=== PATIENT | female | born 1950 | race Asian ===

== ENCOUNTER 2017-06-22 09:41 | Outpatient (CLI) | payer OTHER | END 2017-06-22 21:20 | disposition home or self-care (01) | LOC: RAD 09:41 | DX: M81.0 Age-related osteoporosis without current pathological fracture (principal) ==

== ENCOUNTER 2021-05-29 10:45 | Emergency (ER) | payer OTHER ==
[~2021-05-29] VITALS: Ht 167.6 cm; Wt 62.6 kg
[2021-05-29 10:51] VITALS: TEMP 97.3
[2021-05-29 11:24] LABS: PLATELET COUNT 241 K/uL (152-353)
[2021-05-29 11:34] LABS: POTASSIUM 4.6 mmol/L (3.6-5.2)
[2021-05-29 11:40] LABS: PARTIAL THROMBOPLASTIN TIME 25.8 SECONDS (24.5-33.6)
[2021-05-29 12:50] VITALS: BP 142/80
== END 2021-05-29 12:50 | disposition home or self-care (01) ==
LOC: ED 10:45
PROVIDERS: Hospitalist
DX: I16.0 Hypertensive urgency (principal); M75.52 Bursitis of left shoulder
CPT/HCPCS: 80053; 82550; 83880; 84484; 85027; 85610; 85730; 93005; 96374; 99284; J1885

== ENCOUNTER 2021-05-30 12:26 | Outpatient (CLI) | payer OTHER | END 2021-05-30 19:12 | disposition home or self-care (01) | LOC: LAB 12:26 | PROVIDERS: ATTEND Internal Medicine | DX: E11.9 Type 2 diabetes mellitus without complications (principal); E55.9 Vitamin D deficiency, unspecified | CPT/HCPCS: 82306; 83036 ==